=== PATIENT | male | born 1945 | race Caucasian/White ===

== ENCOUNTER 2023-07-26 07:59 | Outpatient (CLI) | payer MEDICARE, BC | END 2023-07-26 08:00 | disposition home or self-care (01) | LOC: RAD 07:59 | PROVIDERS: ATTEND Family Medicine | DX: S99.912A Unspecified injury of left ankle, initial encounter (principal) ==

== ENCOUNTER 2025-07-10 13:09 | Outpatient (CLI) | payer MEDICARE, BC | END 2025-07-10 13:10 | disposition home or self-care (01) | LOC: BICRAD 13:09 | PROVIDERS: ATTEND Family Medicine | DX: S97.112A Crushing injury of left great toe, initial encounter (principal) ==